=== PATIENT | male | born 1990 | race Caucasian/White ===

== ENCOUNTER 2019-04-22 17:24 | Emergency (ER) | payer BC ==
[2019-04-22 17:35] VITALS: RESP 18
[2019-04-22] MEDS ORDERED: KETOROLAC 30 MG/ML 1 ML VIAL IVP STA (17:44)
[2019-04-22] MEDS ORDERED: ONDANSETRON 4 MG/2 ML VIAL IVP STA (17:44)
[2019-04-22] MEDS ORDERED: SODIUM CHLORIDE 0.9% 1,000 ML IV STA (17:44)
[2019-04-22 18:28] LABS: Basophils # (A) 0.1 k/uL (0-0.2); Basophils % (A) 1 %; Eosinophils # (A) 0.2 k/uL (0-0.7); Eosinophils % (A) 1 %; HCT 45.3 % (39.0-53.0); HGB 15.6 gm/dL (13.0-17.5); Lymphocytes # (A) 2.2 k/uL (1.0-4.8); Lymphocytes % (A) 14 %; MCH 29.7 pg (25.0-35.0); MCHC 34.5 g/dL (31.0-37.0); MCV 86.2 fL (80.0-100.0); Mean Platelet Volume 7.4; Monocytes % (A) 6 %; Neutrophils # (A) 12.3 k/uL (1.3-7.7); Neutrophils % (A) 77 %; Platelet Count 285 k/uL (150-450); RBC 5.25 m/uL (4.30-5.90); RDW 14.2 % (11.5-15.5); WBC 15.9 k/uL (3.8-10.6)
[2019-04-22 18:36] LABS: ALT 39 U/L (21-72); AST 33 U/L (17-59); African American GFR (CKD) >90 (>60 ml/min/1.73 sqM); Albumin 4.9 g/dL (3.5-5.0); Alkaline Phosphatase 113 U/L (38-126); Amylase 54 U/L (30-110); Anion Gap 13 mmol/L; Blood Urea Nitrogen 13 mg/dL (9-20); Calcium 10.1 mg/dL (8.4-10.2); Carbon Dioxide 27 mmol/L (22-30); Chloride 100 mmol/L (98-107); Glucose 126 mg/dL (74-99); Non-African American GFR(CKD) >90 (>60 ml/min/1.73 sqM); Potassium 3.8 mmol/L (3.5-5.1); Sodium 140 mmol/L (137-145); Total Bilirubin 0.6 mg/dL (0.2-1.3); Total Protein 8.9 g/dL (6.3-8.2)
[2019-04-22 19:29] LABS: Appearance,Urine Clear (Clear); Bilirubin,Urine Negative (Negative); Blood,Urine Negative (Negative); Color,Urine Yellow; Glucose,Urine (UA) Negative (Negative); Hyaline Casts,Urine 1 /lpf (0-2); Ketones,Urine Negative (Negative); Leukocyte Esterase,Urine Negative (Negative); Mucus,Urine Occasional /hpf; Nitrite,Urine Negative (Negative); PH, Urine 5.5 (5.0-8.0); Protein,Urine 1+ (Negative); Specific Gravity,Urine 1.031 (1.001-1.035); Urobilinogen,Urine <2.0 mg/dL (<2.0); WBC,Urine 1 /hpf (0-5)
--- NOTE | 2019-04-22 19:39 | ED ---
Abdominal Pain HPI - General Chief Complaint: Abdominal Pain Stated Complaint: Stomach pain Time Seen by Provider: 04/22/19 17:36 Source: patient Mode of arrival: ambulatory Limitations: no limitations - History of Present Illness Initial Comments: Patient is a 28-year-old male presenting to the emergency Department with complaints of lower abdominal pain since this morning. Patient states the pain started while he was working in the yard and has progressed over the course of the morning. Patient admits to mild nausea, no vomiting. Patient denies fever, chills, urinary complaints. Patient says states the pain is in the lower abdomen region and describes the pain as sharp and crampy. Patient denies any previous abdominal surgeries, and history of kidney stone. Patient has no other complaints at this time. Upon arrival to ER, vital signs stable, afebrile. - Related Data Allergies Allergy/AdvReac Type Severity Reaction Status Date / Time No Known Allergies Allergy Verified 04/22/19 17:35 Review of Systems ROS Statement: Those systems with pertinent positive or pertinent negative responses have been documented in the HPI. ROS Other: All systems not noted in ROS Statement are negative. Past Medical History History of Any Multi-Drug Resistant Organisms: None Reported Past Surgical History: No Surgical Hx Reported Past Psychological History: No Psychological Hx Reported Smoking Status: Never smoker Past Alcohol Use History: None Reported Past Drug Use History: Marijuana General Exam - General Exam Comments Initial Comments: GENERAL: Well-appearing, well-nourished and in mild distress secondary to pain. HEAD: Atraumatic, normocephalic. EYES: Pupils equal round and reactive to light, extraocular movements intact, sclera anicteric, conjunctiva are normal. ENT: TMs normal, nares patent, oropharynx clear without exudates. Moist mucous membranes. NECK: Normal range of motion, supple without lymphadenopathy or JVD. LUNGS: Breath sounds clear to auscultation bilaterally and equal. No wheezes rales or rhonchi. HEART: Regular rate and rhythm without murmurs, rubs or gallops. ABDOMEN: Tenderness to the lower abdomen region, left and right side. Soft, normoactive bowel sounds. No guarding, no rebound. No masses appreciated. : Deferred EXTREMITIES: Normal range of motion, no pitting or edema. No clubbing or cyanosis. NEUROLOGICAL: Cranial nerves II through XII grossly intact. Normal speech, normal gait. PSYCH: Normal mood, normal affect. SKIN: Warm, Dry, normal turgor, no rashes or lesions noted. Limitations: no limitations Course Vital Signs 04/22/19 04/22/19 04/22/19 17:33 19:11 21:12 Temperature 98 F 98.7 F 99.4 F Pulse Rate 101 H 88 90 Respiratory 18 18 18 Rate Blood Pressure 182/85 161/109 189/119 O2 Sat by Pulse 96 95 97 Oximetry Medical Decision Making - Medical Decision Making Patient is a 28-year-old male presenting with lower abdominal pain since this morning. Patient also reports associated nausea. Patient denies fever, chills, vomiting, diarrhea. Patient does admit to not having a bowel movement 2 days. Patient's vitals are stable, afebrile. On exam patient has some tenderness over the lower abdominal region, suprapubic, left and right lower right quadrant, nonspecific. CBC does show a little small leukocytosis at 15.9. CMP is within normal limits. Lactic acid is 1.0. UA shows 1+ protein otherwise normal. KUB shows nonspecific nonobstructive bowel gas pattern. Patient was given fluids, Zofran, Toradol and feels improvement. Patient is resting comfortable in the bed. Discussed with patient this is most likely related to constipation and/or a viral gastroenteritis. Patient is wanting to go home. Return parameters were discussed with the patient and he verbalizes understanding. Case discussed with Dr. Da Silva. - Lab Data Result diagrams: 04/22/19 18:06 04/22/19 18:06 Lab Results 04/22/19 04/22/19 04/22/19 Range/Units 18:06 18:06 18:06 WBC 15.9 H (3.8-10.6) k/uL RBC 5.25 (4.30-5.90) m/uL Hgb 15.6 (13.0-17.5) gm/dL Hct 45.3 (39.0-53.0) % MCV 86.2 (80.0-100.0) fL MCH 29.7 (25.0-35.0) pg MCHC 34.5 (31.0-37.0) g/dL RDW 14.2 (11.5-15.5) % Plt Count 285 (150-450) k/uL Neutrophils % 77 % Lymphocytes % 14 % Monocytes % 6 % Eosinophils % 1 % Basophils % 1 % Neutrophils # 12.3 H (1.3-7.7) k/uL Lymphocytes # 2.2 (1.0-4.8) k/uL Monocytes # 1.0 (0-1.0) k/uL Eosinophils # 0.2 (0-0.7) k/uL Basophils # 0.1 (0-0.2) k/uL Sodium 140 (137-145) mmol/L Potassium 3.8 (3.5-5.1) mmol/L Chloride 100 (98-107) mmol/L Carbon Dioxide 27 (22-30) mmol/L Anion Gap 13 mmol/L BUN 13 (9-20) mg/dL Creatinine 0.93 (0.66-1.25) mg/dL Est GFR (CKD-EPI)AfAm >90 (>60 ml/min/1.73 sqM) Est GFR (CKD-EPI)NonAf >90 (>60 ml/min/1.73 sqM) Glucose 126 H (74-99) mg/dL Plasma Lactic Acid Armen 1.0 (0.7-2.0) mmol/L Calcium 10.1 (8.4-10.2) mg/dL Total Bilirubin 0.6 (0.2-1.3) mg/dL AST 33 (17-59) U/L ALT 39 (21-72) U/L Alkaline Phosphatase 113 (38-126) U/L Total Protein 8.9 H (6.3-8.2) g/dL Albumin 4.9 (3.5-5.0) g/dL Amylase 54 (30-110) U/L Lipase 47 (23-300) U/L Urine Color Urine Appearance (Clear) Urine pH (5.0-8.0) Ur Specific [place] (1.001-1.035) Urine Protein (Negative) Urine Glucose (UA) (Negative) Urine Ketones (Negative) Urine Blood (Negative) Urine Nitrite (Negative) Urine Bilirubin (Negative) Urine Urobilinogen (<2.0) mg/dL Ur Leukocyte Esterase (Negative) Urine WBC (0-5) /hpf Hyaline Casts (0-2) /lpf Urine Mucus (None) /hpf 04/22/19 Range/Units 19:10 WBC (3.8-10.6) k/uL RBC (4.30-5.90) m/uL Hgb (13.0-17.5) gm/dL Hct (39.0-53.0) % MCV (80.0-100.0) fL MCH (25.0-35.0) pg MCHC (31.0-37.0) g/dL RDW (11.5-15.5) % Plt Count (150-450) k/uL Neutrophils % % Lymphocytes % % Monocytes % % Eosinophils % % Basophils % % Neutrophils # (1.3-7.7) k/uL Lymphocytes # (1.0-4.8) k/uL Monocytes # (0-1.0) k/uL Eosinophils # (0-0.7) k/uL Basophils # (0-0.2) k/uL Sodium (137-145) mmol/L Potassium (3.5-5.1) mmol/L Chloride (98-107) mmol/L Carbon Dioxide (22-30) mmol/L Anion Gap mmol/L BUN (9-20) mg/dL Creatinine (0.66-1.25) mg/dL Est GFR (CKD-EPI)AfAm (>60 ml/min/1.73 sqM) Est GFR (CKD-EPI)NonAf (>60 ml/min/1.73 sqM) Glucose (74-99) mg/dL Plasma Lactic Acid [place] (0.7-2.0) mmol/L Calcium (8.4-10.2) mg/dL Total Bilirubin (0.2-1.3) mg/dL AST (17-59) U/L ALT (21-72) U/L Alkaline Phosphatase (38-126) U/L Total Protein (6.3-8.2) g/dL Albumin (3.5-5.0) g/dL Amylase (30-110) U/L Lipase (23-300) U/L Urine Color Yellow Urine Appearance Clear (Clear) Urine pH 5.5 (5.0-8.0) Ur Specific [place] 1.031 (1.001-1.035) Urine Protein 1+ H (Negative) Urine Glucose (UA) Negative (Negative) Urine Ketones Negative (Negative) Urine Blood Negative (Negative) Urine Nitrite Negative (Negative) Urine Bilirubin Negative (Negative) Urine Urobilinogen <2.0 (<2.0) mg/dL Ur Leukocyte Esterase Negative (Negative) Urine WBC 1 (0-5) /hpf Hyaline Casts 1 (0-2) /lpf Urine Mucus Occasional H (None) /hpf Disposition Clinical Impression: Abdominal pain Disposition: HOME SELF-CARE Condition: Stable Instructions (If sedation given, give patient instructions): Abdominal Pain (ED) Additional Instructions: Please return to the Emergency Department if symptoms worsen or any other concerns. Is patient prescribed a controlled substance at d/c from ED?: No Referrals: Frandy Guzman MD [Primary Care Provider] - 1-2 days
--- NOTE | 2019-04-22 21:09 | XR ---
EXAM: XR Abdomen, 2 Views CLINICAL HISTORY: ITS.REASON XR Reason: Pain TECHNIQUE: Frontal view of the abdomen/pelvis with upright view of the abdomen. COMPARISON: No relevant prior studies available. FINDINGS: Intraperitoneal space: No free air. Gastrointestinal tract: Unremarkable. No dilation. Bones/joints: Unremarkable. IMPRESSION: Nonspecific, nonobstructive bowel gas pattern.
[2019-04-22 21:25] VITALS: BP 189/119; PULSE 90; TEMP 99.4
== END 2019-04-22 21:12 | disposition home or self-care (01) ==
LOC: EC 17:24
DX: R10.30 Lower abdominal pain, unspecified (principal); R80.9 Proteinuria, unspecified; R11.0 Nausea
CPT/HCPCS: 36415; 80053; 82150; 83605; 83690; 85025; 81001; 74018; 99284; 96374; 96375; 96361; J2405; J1885

== ENCOUNTER 2021-02-21 12:12 | Emergency (ER) | payer BC, OTHER ==
[2021-02-21 12:36] VITALS: BP 162/112; PULSE 102; RESP 18; TEMP 99
[2021-02-21] MEDS ORDERED: LIDOCAINE 1% INJ 10MG/ML (20 ML MDV) SQ ONE (13:01)
[2021-02-21] MEDS ORDERED: BACITRACIN OINT 1 EACH PACKET TOPICAL ONE (13:01)
[2021-02-21] MEDS ORDERED: DIPH,PERTUS(ACELL)TETVAC-LF 0.5 ML VIAL IM ONE (13:01)
--- NOTE | 2021-02-21 13:48 | ED ---
Wound/Laceration HPI - General Chief Complaint: Wound/Laceration Stated Complaint: finger lac Time Seen by Provider: 02/21/21 12:53 Source: patient Mode of arrival: ambulatory Limitations: no limitations - History of Present Illness Initial Comments: Patient is a 30-year-old male presenting to emergency Department with complaints of a laceration to his left middle and ring finger after he accidentally cut it on a wedge tremor. Bleeding is controlled at this time with pressure. He is unaware of his tetanus vaccine. He is not on blood thinners. He denies any other injuries. - Related Data Allergies Allergy/AdvReac Type Severity Reaction Status Date / Time No Known Allergies Allergy Verified 02/21/21 12:36 Review of Systems ROS Statement: Those systems with pertinent positive or pertinent negative responses have been documented in the HPI. ROS Other: All systems not noted in ROS Statement are negative. Past Medical History Past Medical History: No Reported History History of Any Multi-Drug Resistant Organisms: None Reported Past Surgical History: No Surgical Hx Reported Past Psychological History: No Psychological Hx Reported Smoking Status: Never smoker Past Alcohol Use History: None Reported Past Drug Use History: Marijuana General Exam - General Exam Comments Initial Comments: GENERAL: Patient is well-developed and well-nourished. Patient is nontoxic and in no acute distress. HEAD: Atraumatic, normocephalic. EYES: Pupils equal round and reactive to light, extraocular movements intact, sclera anicteric, conjunctiva are normal. Eyelids were unremarkable. ENT: Nares patent, oropharynx clear without exudates. Moist mucous membranes. NECK: Normal range of motion, supple without lymphadenopathy or JVD. LUNGS: Unlabored respirations. Breath sounds clear to auscultation bilaterally and equal. No wheezes rales or rhonchi. HEART: Regular rate and rhythm without murmurs, rubs or gallops. ABDOMEN: Soft, nontender, normoactive bowel sounds. No guarding, no rebound. No masses appreciated. : Deferred MUSCULOSKELETAL: Normal extremities with adequate strength and normal range of motion, no pitting or edema. No clubbing or cyanosis. NEUROLOGICAL: Patient is alert and oriented x 3. Motor and sensory are also intact. Cranial nerves II through XII grossly intact. Symmetrical smile. Normal speech, normal gait. PSYCH: Normal mood, normal affect. SKIN: Warm, Dry, normal turgor, no rashes. Patient has a 2 cm laceration along the distal aspect of the left middle finger, palmar aspect. Patient also has a smaller 0.5 cm laceration to the left ring finger, palmar aspect. Limitations: no limitations Course Vital Signs 02/21/21 12:34 Temperature 99.0 F Pulse Rate 102 H Respiratory 18 Rate Blood Pressure 162/112 O2 Sat by Pulse 97 Oximetry Procedures - Laceration Laceration #1 Consent Obtained: verbal consent Indication: laceration Site: other (Distal end left middle finger) Size (cm): 2 Description: linear Depth: simple, single layer Anesthetic Used: lidocaine 1% Anesthesia Technique: local infiltration Amount (mls): 3 Pre-repair: irrigated extensively Type of Sutures: nylon Size of Sutures: 5-0 Number of Sutures: 7 Technique: simple, interrupted Patient Tolerated Procedure: well Laceration #2 Consent Obtained: verbal consent Indication: laceration Site: other (Left ring finger) Size (cm): 0 (0.5cm) Description: linear Depth: simple, single layer Patient Tolerated Procedure: well Additional Comments: Wound was closed with topical skin adhesive Medical Decision Making - Medical Decision Making Patient is a 30-year-old male here with a to severe laceration to his left middle finger as well as a smaller 0.5 cm laceration to his left ring finger. Both wounds were cleaned. The middle finger required 7, 5-0 sutures, he tolerated procedure well. The ring finger was closed with Steri-Strips. His tetanus vaccine was updated today. He was sutures removed in 7-10 days. He is stable for discharge. Disposition Clinical Impression: Laceration of left middle finger, Laceration of left ring finger Disposition: HOME SELF-CARE Condition: Stable Instructions (If sedation given, give patient instructions): Care For Your Stitches (ED) Additional Instructions: Please return to the Emergency Department if symptoms worsen or any other concerns. Stitches need to be removed in 7-10 days as discussed. Your tetanus vaccine was updated today. Keep area clean and dry, keep covered while working. Is patient prescribed a controlled substance at d/c from ED?: No Referrals: Frandy Guzman MD [Primary Care Provider] - 1-2 days Time of Disposition: 13:48
== END 2021-02-21 14:00 | disposition home or self-care (01) ==
LOC: EC 12:12
DX: S61.213A Laceration without foreign body of left middle finger without damage to nail, initial encounter (principal); S61.215A Laceration without foreign body of left ring finger without damage to nail, initial encounter; Z23 Encounter for immunization; F12.90 Cannabis use, unspecified, uncomplicated; W26.8XXA Contact with other sharp object(s), not elsewhere classified, initial encounter
CPT/HCPCS: 90715; 99282; 90471; 12001; J2001

== ENCOUNTER 2022-10-03 12:50 | Emergency (ER) | payer BC ==
[2022-10-03] MEDS ORDERED: SODIUM CHLORIDE 0.9% 1,000 ML IV STA (13:12)
[2022-10-03 13:47] LABS: Basophils # (A) 0.1 k/uL (0-0.2); Basophils % (A) 1 %; Eosinophils # (A) 0.1 k/uL (0-0.7); Eosinophils % (A) 1 %; HCT 37.4 % (39.0-53.0); HGB 13.1 gm/dL (13.0-17.5); Lymphocytes # (A) 1.7 k/uL (1.0-4.8); Lymphocytes % (A) 28 %; MCH 29.6 pg (25.0-35.0); MCHC 35.1 g/dL (31.0-37.0); MCV 84.3 fL (80.0-100.0); Mean Platelet Volume 7.3; Monocytes # (A) 0.4 k/uL (0-1.0); Monocytes % (A) 6 %; Neutrophils # (A) 3.7 k/uL (1.3-7.7); Neutrophils % (A) 61 %; Platelet Count 241 k/uL (150-450); RBC 4.43 m/uL (4.30-5.90); RDW 13.3 % (11.5-15.5)
[2022-10-03 13:48] LABS: ALT 22 U/L (4-49); AST 22 U/L (17-59); African American GFR (CKD) >90 (>60 ml/min/1.73 sqM); Albumin 4.2 g/dL (3.5-5.0); Alkaline Phosphatase 85 U/L (38-126); Anion Gap 2 mmol/L; Blood Urea Nitrogen 6 mg/dL (9-20); Calcium 9.1 mg/dL (8.4-10.2); Carbon Dioxide 34 mmol/L (22-30); Chloride 104 mmol/L (98-107); Glucose 109 mg/dL (74-99); Non-African American GFR(CKD) >90 (>60 ml/min/1.73 sqM); Potassium 4.3 mmol/L (3.5-5.1); Sodium 140 mmol/L (137-145); Total Bilirubin 0.4 mg/dL (0.2-1.3); Total Protein 7.3 g/dL (6.3-8.2)
[2022-10-03 13:53] LABS: Appearance,Urine Clear (Clear); Bilirubin,Urine Negative (Negative); Blood,Urine Large (Negative); Color,Urine Yellow; Glucose,Urine (UA) Negative (Negative); Ketones,Urine Negative (Negative); Leukocyte Esterase,Urine Negative (Negative); Mucus,Urine Few /hpf; Nitrite,Urine Negative (Negative); Protein,Urine Trace (Negative); RBC,Urine >182 /hpf (0-5); Specific Gravity,Urine 1.017 (1.001-1.035); Urobilinogen,Urine <2.0 mg/dL (<2.0); WBC,Urine 2 /hpf (0-5)
--- NOTE | 2022-10-03 14:19 | US ---
EXAMINATION TYPE: US kidneys/renal and bladder DATE OF EXAM: 10/03/2022 COMPARISON: 04/22/2019. CLINICAL HISTORY: blood in urine. Pt states hematuria x 1 week EXAM MEASUREMENTS: Right Kidney: 11.9 x 5.6 x 4.8 cm Left Kidney: 10.2 x 5.2 x 5.1 cm Right Kidney: wnl Left Kidney: wnl Bladder: Not fully distended, pt voided just prior to exam There is no evidence for hydronephrosis at this point in time. No nephrolithiasis is seen. No dony s are identified. The urinary bladder is underdistended and anechoic. IMPRESSION: No hydronephrosis or nephrolithiasis demonstrated.
[2022-10-03 14:46] VITALS: RESP 16
--- NOTE | 2022-10-03 15:23 | CT ---
EXAMINATION TYPE: CT abdomen pelvis w con CT DLP: 927.1 mGycm, Automated exposure control for dose reduction was used. DATE OF EXAM: 10/03/2022 3:15 PM COMPARISON: Renal ultrasound 10/03/2022. CLINICAL INDICATION:Male, 32 years old with history of hematuria; TECHNIQUE: Standard CT of the abdomen and pelvis following the administration of 100 cc of Isovue 3 00 IV contrast material. Coronal and sagittal reformats were performed. FINDINGS: LOWER CHEST: Unremarkable ABDOMEN LIVER: Unremarkable GALLBLADDER AND BILE DUCTS: Unremarkable. PANCREAS: Unremarkable. SPLEEN: Unremarkable. ADRENAL GLANDS: Unremarkable. KIDNEYS AND URETERS: No evidence of hydronephrosis. The kidneys enhance symmetrically. No perinephric fat stranding or fluid collections. Nonobstructive left superior pole 3 mm calculus. PELVIS BLADDER: Incompletely distended but grossly unremarkable. REPRODUCTIVE: Punctate calcifications of the prostate gland are identified. ABDOMEN & PELVIS STOMACH AND BOWEL: Stomach and duodenum are unremarkable no focal wall thickening or surrounding infl ammatory changes. No evidence of bowel obstruction. PERITONEUM: No evidence of pneumoperitoneum or free fluid. VASCULATURE: No evidence of aortic aneurysm. MUSCULOSKELETAL: No acute osseous abnormalities. No spondylolisthesis. Right L5 pars defect. LYMPH NODES: No gross evidence for lymphadenopathy. SOFT TISSUE/ABDOMINAL WALL: Unremarkable IMPRESSION: 1. No acute abdominopelvic process. 2. Nonobstructive left renal 3 mm calculus.
--- NOTE | 2022-10-03 15:39 | ED ---
Male Urogenital HPI - General Chief complaint: Urogenital Stated complaint: hematuria Time Seen by Provider: 10/03/22 13:12 Source: patient Mode of arrival: ambulatory Limitations: no limitations - History of Present Illness Initial comments: Patient is a 32-year-old male who presents to the emergency department with a chief complaint of blood in urine. Patient states for the past week he has had normal colored urine until the end of urination when there are drips of blood that come out. He denies trauma. He does report mild intermittent pain in his penis during urination which he says feels like a scrape. He denies increased urinary frequency/urgency, penile discharge, testicular pain, abdominal pain, nausea, vomiting, fever, chills. Denies history of kidney stone. Patient had urology referral from primary care provider but states there was an issue with the referral therefore he does not have an appointment. - Related Data Home Medications Medication Instructions Recorded Confirmed Ergocalciferol [Vitamin D2 (1250 1,250 mcg PO CAST 10/03/22 10/03/22 Mcg = 39157 Iu)] lisinopriL [Prinivil] 20 mg PO DAILY 10/03/22 10/03/22 Allergies Allergy/AdvReac Type Severity Reaction Status Date / Time No Known Allergies Allergy Verified 10/03/22 15:30 Review of Systems ROS Statement: Those systems with pertinent positive or pertinent negative responses have been documented in the HPI. ROS Other: All systems not noted in ROS Statement are negative. Past Medical History Past Medical History: No Reported History History of Any Multi-Drug Resistant Organisms: None Reported Past Surgical History: No Surgical Hx Reported Past Psychological History: No Psychological Hx Reported Smoking Status: Never smoker Past Alcohol Use History: None Reported Past Drug Use History: Marijuana General Exam Limitations: no limitations General appearance: alert, in no apparent distress Head exam: Present: atraumatic, normocephalic, normal inspection Respiratory exam: Present: normal lung sounds bilaterally. Absent: respiratory distress, wheezes, rales, rhonchi, stridor Cardiovascular Exam: Present: regular rate, normal rhythm, normal heart sounds. Absent: systolic murmur, diastolic murmur, rubs, gallop, clicks GI/Abdominal exam: Present: soft, normal bowel sounds. Absent: distended, tenderness, guarding, rebound, rigid Neurological exam: Present: alert, oriented X3, CN II-XII intact Psychiatric exam: Present: normal affect, normal mood Skin exam: Present: warm, dry, intact, normal color. Absent: rash Course Vital Signs 10/03/22 10/03/22 10/03/22 12:51 14:46 15:52 Temperature 97.0 F L 97.9 F Pulse Rate 82 78 84 Respiratory 20 16 16 Rate Blood Pressure 140/91 122/86 124/86 O2 Sat by Pulse 99 97 98 Oximetry Medical Decision Making - Medical Decision Making Was pt. sent in by a medical professional or institution (, PA, DRILLING FIELD SPECIALIST, urgent care, hospital, or shelter...) When possible be specific @ -[No] Did you speak to anyone other than the patient for history (EMS, parent, family, police, friend...)? What history was obtained from this source @ -[No] Did you review nursing and triage notes (agree or disagree)? Why? @ -[I reviewed and agree with nursing and triage notes] Were old charts reviewed (outside hosp., previous admission, EMS record, old EKG, old radiological studies, urgent care reports/EKG's, shelter records)? Report findings @ -[No old charts were reviewed] Differential Diagnosis (chest pain, altered mental status, abdominal pain women, abdominal pain men, vaginal bleeding, weakness, fever, dyspnea, syncope, headache, dizziness, GI bleed, back pain, seizure, CVA, palpatations, mental health)? @ -infection, kidney stone, tumor EKG interpreted by me (3pts min.). @ -[As above] X-rays interpreted by me (1pt min.). @ -[None done] CT interpreted by me (1pt min.). @ -Yes, CT abdomen and pelvis with contrast shows no acute abdominal pelvic process. There is nonobstructive left renal 3 mm calculus U/S interpreted by me (1pt. min.). @ -No.Ultrasound of the kidneys and bladder shows no evidence of hydronephrosis or nephrolithiasis What testing was considered but not performed or refused? (CT, X-rays, U/S, labs)? Why? @ -[None] What meds were considered but not given or refused? Why? @ -Considered pain meds however patient does not have pain Did you discuss the management of the patient with other professionals (professionals i.e. , PA, DRILLING FIELD SPECIALIST, lab, RT, psych nurse, medical social worker, ct tech, teacher, state highway police officer, rn case manager)? Give summary @ -[No] Was smoking cessation discussed for >3mins.? @ -[No] Was critical care preformed (if so, how long)? @ -[No] Were there social determinants of health that impacted care today? How? (Homelessness, low income, unemployed, alcoholism, drug addiction, transportation, low edu. Level, literacy, decrease access to med. care, nursing home, rehab)? @ -[No] Was there de-escalation of care discussed even if they declined (Discuss DNR or withdrawal of care, Hospice)? DNR status @ -[No] What co-morbidities impacted this encounter? (DM, HTN, Smoking, COPD, CAD, Cancer, CVA, ARF, Chemo, Hep., AIDS, mental health diagnosis, sleep apnea, morbid obesity)? @ -[None] Was patient admitted / discharged? Hospital course, mention meds given and route, prescriptions, significant lab abnormalities, going to OR and other pertinent info. @ Discharged. No obvious cause for hematuria. Patient referred to urology. Undiagnosed new problem with uncertain prognosis? @ -[No] Drug Therapy requiring intensive monitoring for toxicity (Heparin, Nitro, Insulin, Cardizem)? @ -[No] Were any procedures done? @ -[No] Diagnosis/symptom? @ Hematuria Acute, or Chronic, or Acute on Chronic? @ -Acute Uncomplicated (without systemic symptoms) or Complicated (systemic symptoms)? @ -Uncomplicated Side effects of treatment? @ -[No] Exacerbation, Progression, or Severe Exacerbation? @ -[No] Poses a threat to life or bodily function? How? (Chest pain, [place], DC, pneumonia, PE, COPD, DKA, ARF, appy, cholecystitis, CVA, Diverticulitis, Homicidal, Suicidal, threat to staff... and all critical care pts) @ -[No] Dr. Sanchez is my attending - Lab Data Result diagrams: 10/03/22 13:25 10/03/22 13:25 Lab Results 10/03/22 10/03/22 10/03/22 Range/Units 13:25 13:25 13:28 WBC 6.0 (3.8-10.6) k/uL RBC 4.43 (4.30-5.90) m/uL Hgb 13.1 (13.0-17.5) gm/dL Hct 37.4 L (39.0-53.0) % MCV 84.3 (80.0-100.0) fL MCH 29.6 (25.0-35.0) pg MCHC 35.1 (31.0-37.0) g/dL RDW 13.3 (11.5-15.5) % Plt Count 241 (150-450) k/uL MPV 7.3 Neutrophils % 61 % Lymphocytes % 28 % Monocytes % 6 % Eosinophils % 1 % Basophils % 1 % Neutrophils # 3.7 (1.3-7.7) k/uL Lymphocytes # 1.7 (1.0-4.8) k/uL Monocytes # 0.4 (0-1.0) k/uL Eosinophils # 0.1 (0-0.7) k/uL Basophils # 0.1 (0-0.2) k/uL Sodium 140 (137-145) mmol/L Potassium 4.3 (3.5-5.1) mmol/L Chloride 104 (98-107) mmol/L Carbon Dioxide 34 H (22-30) mmol/L Anion Gap 2 mmol/L BUN 6 L (9-20) mg/dL Creatinine 0.76 (0.66-1.25) mg/dL Est GFR (CKD-EPI)AfAm >90 (>60 ml/min/1.73 sqM) Est GFR (CKD-EPI)NonAf >90 (>60 ml/min/1.73 sqM) Glucose 109 H (74-99) mg/dL Calcium 9.1 (8.4-10.2) mg/dL Total Bilirubin 0.4 (0.2-1.3) mg/dL AST 22 (17-59) U/L ALT 22 (4-49) U/L Alkaline Phosphatase 85 (38-126) U/L Total Protein 7.3 (6.3-8.2) g/dL Albumin 4.2 (3.5-5.0) g/dL Urine Color Yellow Urine Appearance Clear (Clear) Urine pH 6.0 (5.0-8.0) Ur Specific [place] 1.017 (1.001-1.035) Urine Protein Trace H (Negative) Urine Glucose (UA) Negative (Negative) Urine Ketones Negative (Negative) Urine Blood Large H (Negative) Urine Nitrite Negative (Negative) Urine Bilirubin Negative (Negative) Urine Urobilinogen <2.0 (<2.0) mg/dL Ur Leukocyte Esterase Negative (Negative) Urine RBC >182 H (0-5) /hpf Urine WBC 2 (0-5) /hpf Urine Mucus Few H (None) /hpf Disposition Clinical Impression: Hematuria Disposition: HOME SELF-CARE Condition: Good Instructions (If sedation given, give patient instructions): Hematuria (ED) Additional Instructions: Follow-up with urology in 1-2 days. Return to the emergency department if you experience new, concerning, or worsening symptoms. Is patient prescribed a controlled substance at d/c from ED?: No Referrals: Frandy Guzman MD [Primary Care Provider] - 1-2 days Max Ramos MD [STAFF PHYSICIAN] - 1-2 days Time of Disposition: 15:38
[2022-10-03 15:56] VITALS: BP 124/86; PULSE 84; TEMP 97.9
== END 2022-10-03 15:56 | disposition home or self-care (01) ==
LOC: EC 12:50
DX: R31.9 Hematuria, unspecified (principal); N20.0 Calculus of kidney; F12.90 Cannabis use, unspecified, uncomplicated
CPT/HCPCS: 36415; 80053; 85025; 81001; 76770; 74177; 99284; 96360; Q9967

== ENCOUNTER 2024-11-11 12:58 | Emergency (ER) | payer BC ==
--- NOTE | 2024-11-11 13:42 | ED ---
ENT HPI - General Chief complaint: Dental/Oral Stated complaint: Dental pain Time Seen by Provider: 11/11/24 13:18 Source: patient, RN notes reviewed Mode of arrival: ambulatory Limitations: no limitations - History of Present Illness Initial comments: 34-year-old male presenting for dental pain x 1 week. States he has been infected tooth on the bottom right side. He saw his dentist last (5 days ago) who placed him on Keflex. He has been taking the Keflex with little improvement. He has a follow-up appointment with his dentist tomorrow, but states the pain is worsening and radiates to the jaw. Denies fevers. Denies difficulty eating, swallowing, or breathing. No other health conditions. - Related Data Home Medications Medication Instructions Recorded Confirmed Ergocalciferol [Vitamin D2 (1250 1,250 mcg PO CAST 10/03/22 10/03/22 Mcg = 03503 Iu)] lisinopriL [Prinivil] 20 mg PO DAILY 10/03/22 10/03/22 Previous Rx's Medication Instructions Recorded Amoxic-Pot Clav 875-125Mg 1 tab PO Q12HR #20 tab 11/11/24 [Augmentin 875-125] Allergies Allergy/AdvReac Type Severity Reaction Status Date / Time No Known Allergies Allergy Verified 11/11/24 13:06 Review of Systems ROS Statement: Those systems with pertinent positive or pertinent negative responses have been documented in the HPI. ROS Other: All systems not noted in ROS Statement are negative. Past Medical History Past Medical History: No Reported History History of Any Multi-Drug Resistant Organisms: None Reported Past Surgical History: No Surgical Hx Reported Past Psychological History: No Psychological Hx Reported Smoking Status: Never smoker Past Alcohol Use History: None Reported Past Drug Use History: Marijuana General Exam Limitations: no limitations General appearance: alert, in no apparent distress Head exam: Present: atraumatic, normocephalic, normal inspection Eye exam: Present: normal appearance, PERRL, EOMI. Absent: scleral icterus, conjunctival injection, periorbital swelling ENT exam: Present: mucous membranes moist, TM's normal bilaterally, other (No facial edema). Absent: normal exam (Dental caries throughout oral cavity, there is an absent tooth present right lower side with pain to palpation. No fluctuant masses, erythema, or drainage.), normal oropharynx Neck exam: Present: normal inspection. Absent: tenderness, meningismus, lymphadenopathy Respiratory exam: Present: normal lung sounds bilaterally. Absent: respiratory distress, wheezes, rales, rhonchi, stridor Cardiovascular Exam: Present: regular rate, normal rhythm, normal heart sounds. Absent: systolic murmur, diastolic murmur, rubs, gallop, clicks Neurological exam: Present: alert, oriented X3 Psychiatric exam: Present: normal affect, normal mood Skin exam: Present: warm, dry, intact, normal color. Absent: rash Course Vital Signs 11/11/24 13:01 Temperature 97.7 F Pulse Rate 92 Respiratory 14 Rate Blood Pressure 183/112 O2 Sat by Pulse 99 Oximetry Medical Decision Making - Medical Decision Making Was pt. sent in by a medical professional or institution ([facility] [place], SILK SCREEN PAINTER, urgent care, hospital, or [facility]...) When possible be specific @ -No Did you speak to anyone other than the patient for history (EMS, parent, family, police, friend...)? What history was obtained from this source @ -No Did you review nursing and triage notes (agree or disagree)? Why? @ -I reviewed and agree with nursing and triage notes Were old charts reviewed (outside hosp., previous admission, EMS record, old EKG, old radiological studies, urgent care reports/EKG's, [facility] records)? Report findings @ -No old charts were reviewed Differential Diagnosis (chest pain, altered mental status, abdominal pain women, abdominal pain men, vaginal bleeding, weakness, fever, dyspnea, syncope, headac he, dizziness, GI bleed, back pain, seizure, CVA, palpatations, mental health, musculoskeletal)? @ -Dental infection, dental abscess, gingivitis, dental caries EKG interpreted by me (3pts min.). @ -None X-rays interpreted by me (1pt min.). @ -None done CT interpreted by me (1pt min.). @ -None done U/S interpreted by me (1pt. min.). @ -None done What testing was considered but not performed or refused? (CT, X-rays, U/S, labs)? Why? @ -None What meds were considered but not given or refused? Why? @ -None Did you discuss the management of the patient with other professionals (professionals i.e. Dr., PA, SILK SCREEN PAINTER, lab, RT, psych nurse, social services specialist, dining room helper, teacher, combat information center officer, case liner)? Give summary @ -No Was smoking cessation discussed for >3mins.? @ -No Was critical care preformed (if so, how long)? @ -No Were there social determinants of health that impacted care today? How? (Homelessness, low income, unemployed, alcoholism, drug addiction, transportation, low edu. Level, literacy, decrease access to med. care, senior care, rehab)? @ -No Was there de-escalation of care discussed even if they declined (Discuss DNR or withdrawal of care, Hospice)? DNR status @ -No What co-morbidities impacted this encounter? (DM, HTN, Smoking, COPD, CAD, Cancer, CVA, ARF, Chemo, Hep., AIDS, mental health diagnosis, sleep apnea, morbid obesity)? @ -None Was patient admitted / discharged? Hospital course, mention meds given and route, prescriptions, significant lab abnormalities, going to OR and other pertinent info. @ -Discharge. 34-year-old male presenting for dental pain x 1 week. Has been o n Keflex prescribed by dentist for 5 days with little improvement. No red flag symptoms. No difficulty breathing or swallowing. Patient is afebrile. He is hypertensive however states he has not taken his blood pressure medications this morning. No cardiopulmonary alarm symptoms. Diffuse dental caries throughout oral exam with pain to palpation right lower side with no visible fluctuance or abscess. Patient will be provided with dose of Toradol and Rocephin and advised to discontinue Keflex and start Augmentin. Discharged with Tylenol 3 starter pack. Encouraged to follow-up for dentist appointment tomorrow and advised to take blood pressure medications when he gets home. Case was discussed with my ED attending Dr. Da Silva. Undiagnosed new problem with uncertain prognosis? @ -No Drug Therapy requiring intensive monitoring for toxicity (Heparin, Nitro, Insulin, Cardizem)? @ -No Were any procedures done? @ -No Diagnosis/symptom? @ -Dental infection Acute, or Chronic, or Acute on Chronic? @ -Acute Uncomplicated (without systemic symptoms) or Complicated (systemic symptoms)? @ -Uncomplicated Side effects of treatment? @ -No Exacerbation, Progression, or Severe Exacerbation? @ -No Poses a threat to life or bodily function? How? (Chest pain, [place], [place], pneumonia, PE, COPD, DKA, ARF, appy, cholecystitis, CVA, Diverticulitis, Homicidal, Suicidal, threat to staff... and all critical care pts) @ -No Disposition Clinical Impression: Dental infection Disposition: HOME SELF-CARE Condition: Stable Instructions (If sedation given, give patient instructions): Toothache (ED) Additional Instructions: Discontinue Keflex and start Augmentin. Take ibuprofen and Tylenol threes as needed for pain. Follow-up for your dentist appointment tomorrow. Please return to the Emergency Department if symptoms worsen or any other concerns. Prescriptions: Amoxic-Pot Clav 875-125Mg [Augmentin 875-125] 1 tab PO Q12HR #20 tab Is patient prescribed a controlled substance at d/c from ED?: No Referrals: Frandy Guzman MD [Primary Care Provider] - 1-2 days Time of Disposition: 14:16
[2024-11-11] MEDS: cefTRIAXone 1,000 MG VIAL (IM USE) IM STA (13:58)
[2024-11-11] MEDS: ACET/COD 300 MG/30 MG STARTER PACK 6 TAB BTL PO STA (13:59)
[2024-11-11] MEDS: KETOROLAC 15 MG/ML 1 ML VIAL IM STA (13:59)
[2024-11-11 14:29] VITALS: BP 165/89; PULSE 90; RESP 16; TEMP 97.8
== END 2024-11-11 14:27 | disposition home or self-care (01) ==
LOC: EC 12:58
DX: K04.7 Periapical abscess without sinus (principal)
CPT/HCPCS: 99282; 96372; J0696; J1885